=== PATIENT | female | born 2000 | race Caucasian/White ===

== ENCOUNTER 2019-04-08 21:25 | Inpatient (IN) | payer SELFPAY ==
[~2019-04-08] VITALS: Ht 160 cm; Wt 70.6 kg
[2019-04-08 22:04] LABS: MEAN CELL VOLUME 108 fl (80.0-95.0); MEAN CORPUSCULAR HGB CONC 32 g/dl (33.0-37.0); RED BLOOD COUNT 1.06 M/mm3 (4.10-5.30); REDCELL DISTRIBUTION WIDTH-CV 14.4 % (11.5-14.5)
[2019-04-08 22:16] LABS: COLLECTION METHOD CLEAN CATCH
[2019-04-08 22:19] LABS: STREP SCREEN POSITIVE
[2019-04-08 22:21] LABS: PH 7 (5-8); URINE APPEARANCE Hazy; URINE BACTERIA Rare /hpf; URINE BILIRUBIN Negative (NEGATIVE); URINE BLOOD Negative (NEGATIVE); URINE COLOR Yellow; URINE GLUCOSE Negative (NEGATIVE); URINE KETONE Negative (NEGATIVE); URINE LEUKOCYTE ESTERASE Negative (NEGATIVE); URINE NITRATE Negative (NEGATIVE); URINE PROTEIN(semi-quant) Negative (NEGATIVE); URINE RBC 0-2 /hpf; URINE UROBILINOGEN >=4.0 mg/dL (NEGATIVE)
[2019-04-08 22:24] LABS: BILIRUBIN,TOTAL 0.6 mg/dL (0.0-1.0); C-REACTIVE PROTEIN 6.3 mg/dL (0.0-0.9); CALCIUM 8.6 mg/dL (8.4-10.2); CREATININE, serum 0.67 (0.52-1.25); POTASSIUM 3.9 mmol/L (3.4-5.0); TOTAL PROTEIN 7.2 gm/dL (6.4-8.2)
[2019-04-08 22:34] LABS: HEMATOCRIT 11.4 % (35.0-45.0); MEAN CORPUSCULAR HEMOGLOBIN 34 pg (26.0-32.0)
[2019-04-08 22:36] LABS: HEMOGLOBIN 3.6 g/dl (12.0-15.0); PLATELET COUNT 4 K/mm3 (130-400)
[2019-04-08 22:45] LABS: LYMPHOCYTE 93 % (20.0-51.0); METAMYELOCYTE 0 % (0-0); MYELOCYTE 6 % (0-0); NEUTROPHILS 0 % (42.0-75.2)
[2019-04-08 22:46] LABS: HYPOCHROMIA 1+; PLATELET ESTIMATE DECREASED (NORMAL)
[2019-04-08 22:47] LABS: ANISOCYTOSIS 1+; POIKILOCYTOSIS 1+
[2019-04-08 23:00] LABS: GRAN # 0.2 (1.4-6.5); GRAN % 0.4 % (42.2-75.2); MEAN CELL VOLUME 109 fl (80.0-95.0); MEAN CORPUSCULAR HGB CONC 31 g/dl (33.0-37.0); MEAN PLATELET VOLUME 10.5 fl (7.4-10.4); MONO # 5.4 (0.1-0.6); MONO % 11.6 % (1.7-9.3); REDCELL DISTRIBUTION WIDTH-CV 14.6 % (11.5-14.5)
[2019-04-08 23:01] LABS: INR 1.2 (0.8-3.0); PROTHROMBIN TIME 14.6 SECONDS (9.7-12.8)
[2019-04-08 23:02] LABS: URIC ACID 3.7 mg/dL (2.5-6.2)
[2019-04-08 23:05] LABS: HEMATOCRIT 9.8 % (35.0-45.0); MEAN CORPUSCULAR HEMOGLOBIN 33 pg (26.0-32.0); PLATELET COUNT 4 K/mm3 (130-400)
[2019-04-08 23:18] LABS: MAGNESIUM 1.8 mg/dL (1.6-2.3); PHOSPHOROUS 3.8 mg/dL (2.5-4.5)
[2019-04-09] VITALS (601 sets, daily range): BP systolic 92–110; BP diastolic 51–77; PULSE 90–117; TEMP 97.2–99.1; O2SAT 81–100
--- NOTE | 2019-04-09 00:30 | NUR ---
Phone report received from SHELLIE Serrano RN. Pt arrived to [facility] bed 15 via stretcher. Pt's Aunt and cousin in room. Pt Swiss speaking. Pt A/Ox3. Denies any pain or nausea. Pt connected to heart monitor. HR ST 120s on monitor. SBP 100s. Pt weak, pt transferred to [facility] bed with assist. Assessment completed. Discussed plan of care r/t blood transfusion. Pt's aunt verbalized understanding. Call light in reach.
--- NOTE | 2019-04-09 01:15 | NUR ---
Discussed blood transfusion orders with pt via band nailer line. Pt verbalized understanding. States she has never had a blood transfusion before. Pt signed blood consent. Pt's aunt and cousin remain in room.
--- NOTE | 2019-04-09 01:30 | NUR ---
Platelet transfusion started. Pt resting in bed.
--- NOTE | 2019-04-09 01:55 | NUR ---
IV benadryl given per Dr Carr orders. Platelet transfusion restarted per orders. Pt resting in bed after IV benadryl administered.
--- NOTE | 2019-04-09 02:45 | NUR ---
Pt still c/o shoulder pain after PO tylenol given. Warm blanket placed on shoulders, pt repositioned. Platelet transfusion rate decreased.
[2019-04-09 03:06] LABS: RETIC # 0.01 M/mm3 (0.02-0.16); RETIC % 0.7 % (0.5-3.52)
--- NOTE | 2019-04-09 04:45 | NUR ---
PRBC transfusing in right AC PIV. No s/s reaction. Pt resting in bed, easily arousable. HR ST 100s on monitor. Pt remains afebrile. Pt's aunt and cousin remains in room. Call light in reach.
--- NOTE | 2019-04-09 06:34 | NUR ---
Second PRBC transfusing. Pt resting in bed, easily arousable. Takes PO medication without difficulty. HR SR-ST 90-100s on monitor. Pt's aunt and cousin in room. Call light in reach.
--- NOTE | 2019-04-09 07:42 | NUR ---
Report given to GARETH Gill.
--- NOTE | 2019-04-09 07:42 | NUR ---
Report recieved from Tom Love RN. Patient and family at bedside. PRBC's infusing per pump. Deny needs at this time.
[2019-04-09 08:15] LABS: PATHOLOGY DIFF REVIEW OK +
--- NOTE | 2019-04-09 08:22 | NUR ---
Dr. Flores calls this nurse in reference to Onc consult. States unable to see patient until this evening after clinic, but states it's best for the patient to continue with transfer to as able. If unable to get patient to , please call this afternoon and will be patient. If any questions or concerns arise, please call.
--- NOTE | 2019-04-09 09:17 | NUR ---
Initial visit; Patient Kazakh speaking, family member thanked Interviewing Clerk for looking in on Verna and letting them know that spiritual care is available and [facility] Communion is available.
[2019-04-09 09:48] LABS: MEAN CORPUSCULAR HGB CONC 35 g/dl (33.0-37.0); MEAN PLATELET VOLUME 9.9 fl (7.4-10.4); RED BLOOD COUNT 1.96 M/mm3 (4.10-5.30); REDCELL DISTRIBUTION WIDTH-CV 15.9 % (11.5-14.5)
[2019-04-09 09:58] LABS: ALBUMIN 3.5 gm/dL (3.5-5.0); BILIRUBIN,TOTAL 0.8 mg/dL (0.0-1.0); CALCIUM 8.2 mg/dL (8.4-10.2); CREATININE, serum 0.56 (0.52-1.25); POTASSIUM 3.3 mmol/L (3.4-5.0); TOTAL PROTEIN 6.4 gm/dL (6.4-8.2)
[2019-04-09 10:00] LABS: INR 1.2 (0.8-3.0); PROTHROMBIN TIME 13.8 SECONDS (9.7-12.8)
[2019-04-09 10:02] LABS: PARTIAL THROMBOPLASTIN TIME 30.6 SECONDS (26.0-37.0)
[2019-04-09 10:03] LABS: HEMATOCRIT 18.8 % (35.0-45.0); HEMOGLOBIN 6.5 g/dl (12.0-15.0); MEAN CELL VOLUME 96 fl (80.0-95.0); MEAN CORPUSCULAR HEMOGLOBIN 33 pg (26.0-32.0); PLATELET COUNT 20 K/mm3 (130-400)
[2019-04-09 10:19] LABS: BURR CELLS 1+; LYMPHOCYTE 92 % (20.0-51.0); PLATELET ESTIMATE DECREASED (NORMAL)
--- NOTE | 2019-04-09 11:06 | NUR ---
TE[employer] student met with the patient and the patient's aunt, Leela Bronson. The patient has lived in [place] the past 6 months with her aunt. The patient does not have a PCP and lost her job due to illness. The patient's aunt wants to ride to [facility] with [facility]. TECHNICIAN [employer] student contacted [facility] and Howard confirmed that a family member can ride as long the person sits in the front. The patient is being tranferred to [facility] this day at approximately 11:45.
--- NOTE | 2019-04-09 11:20 | NUR ---
Report called to Maureen SERVIN at [facility].
--- NOTE | 2019-04-09 11:38 | NUR ---
Notified nurse at [facility] that transfer delayed until this around DT Dr. Sainz's request. Also Jonatan with transfer center calls this RN with update.
[2019-04-09 12:11] LABS: MEAN CELL VOLUME 97 fl (80.0-95.0); MEAN CORPUSCULAR HGB CONC 34 g/dl (33.0-37.0); MEAN PLATELET VOLUME 9.2 fl (7.4-10.4); RED BLOOD COUNT 1.71 M/mm3 (4.10-5.30); REDCELL DISTRIBUTION WIDTH-CV 16.2 % (11.5-14.5)
[2019-04-09 12:16] LABS: HEMATOCRIT 16.5 % (35.0-45.0); HEMOGLOBIN 5.6 g/dl (12.0-15.0); MEAN CORPUSCULAR HEMOGLOBIN 33 pg (26.0-32.0); PLATELET COUNT 19 K/mm3 (130-400)
[2019-04-09 12:24] LABS: INR 1.2 (0.8-3.0); PROTHROMBIN TIME 14.1 SECONDS (9.7-12.8)
[2019-04-09 12:42] LABS: LYMPHOCYTE 95 % (20.0-51.0); NEUTROPHILS 1 % (42.0-75.2); PLATELET ESTIMATE DECREASED (NORMAL)
--- NOTE | 2019-04-09 14:35 | NUR ---
Report given to Gonzalo Espinosa with [facility]. [id number] Patient transferred to [facility] via EMS. Family and belongings at side.
[2019-04-09 16:05] LABS: FOLATE (FOLIC ACID) 4.2 ng/mL (7.0-31.4)
== END 2019-04-09 14:40 | disposition short-term general hospital (02) | DRG 813 ==
LOC: COL.ER 21:25 → EDBD 21:26 → COL.ER 21:26 → IMCU 23:51
PROVIDERS: Emergency Medicine; Family Medicine; Physician Assistant
DX: D69.6 Thrombocytopenia, unspecified (principal); D64.9 Anemia, unspecified; D72.829 Elevated white blood cell count, unspecified; A49.1 Streptococcal infection, unspecified site
CPT/HCPCS: 99223-AI; 99239; A4216; J0696; J1200; J1450; J1956; J2405; J7030; P9016; P9035